=== PATIENT | female | born 1970 | race Caucasian/White ===

== ENCOUNTER 2023-07-25 06:56 | Day surgery (SDC) | payer BC ==
[~2023-07-25 06:56] MED LIST: ASTRINGYN 8 GM TP ONE; XYLOCAINE 1%/Epi 1:100000 MDV 20 ML ONE
[2023-07-25 07:24] LABS: HCG URINE TEST NEGATIVE (NEGATIVE)
[2023-07-25] MEDS ORDERED: CEFAZOLIN 2 GM-D5W BAG** 2 GM/50 ML ML IV ONE (07:25)
[2023-07-25] MEDS ORDERED: Lactated Ringers 1,000 ML IV ONE (07:25)
[2023-07-25] MEDS ORDERED: Lactated Ringers 1,000 ML IV SCH (07:30)
[2023-07-25] MEDS ORDERED: CEFAZOLIN 2 GM-D5W BAG** 2 GM/50 ML ML IV SCH (07:30)
[2023-07-25 07:52] VITALS: RESP 16
[2023-07-25] MEDS ORDERED: DIPRIVAN 200 MG/20 ML IV ONE (09:13)
[2023-07-25] MEDS ORDERED: SUBLIMAZE 100 MCG/2 ML ONE (09:13)
[2023-07-25] MEDS ORDERED: Versed 2 MG/2 ML Injection ONE (09:13)
[2023-07-25] MEDS ORDERED: PERCOCET TABLET 5/325MG PO ONE (11:14)
[2023-07-25] MEDS ORDERED: TORAdol 30 mg Injection IV ONE (11:15)
[2023-07-25] MEDS ORDERED: TORAdol 30 mg Injection ONE (11:19)
[2023-07-25] MEDS ORDERED: Zofran 4 MG/2 ML VIAL IV STA (11:22)
[2023-07-25] MEDS ORDERED: Zofran 4 MG/2 ML VIAL ONE (11:23)
[2023-07-25 12:31] VITALS: BP 125/52; PULSE 52; TEMP 97.9; O2SAT 96
--- NOTE | 2023-07-26 09:07 | OP ---
SURGERY DATE/TIME: 07/25/2023 0912 PREOPERATIVE DIAGNOSIS: Menorrhagia and severe cervical dysplasia. POSTOPERATIVE DIAGNOSIS: Menorrhagia and severe cervical dysplasia. PROCEDURE: Hysteroscopy D&C with NovaSure ablation with loop electrosurgical excision procedure (LEEP). SURGEON: Alex Betts D.O. INTERVENTIONIST: Arminda Perla, surgical technologist. ANESTHESIA: General. ESTIMATED BLOOD LOSS: Minimal. COMPLICATIONS: None. INDICATIONS: The risks, benefits, indications and alternatives of the procedure were reviewed with the patient prior to procedure. The patient understood the risk of infection, bleeding, bowel injury, bladder injury, uterine perforation and pelvic infection and thromboembolic disorder associated with the surgery and desires to have this surgery as a possible means to alleviate her current medical condition. DESCRIPTION OF PROCEDURE AND FINDINGS: At this point the patient is taken to the operating room, given general sedation, placed in the dorsal lithotomy position, prepped and draped in the usual sterile fashion. A weighted speculum is then placed in the patient's vagina and the anterior lip of the cervix is grasped with a single tooth tenaculum. Endocervical dilators were advanced through the endocervical canal as a means to dilate the cervix and a 5 mm hysteroscope is then placed through the endocervical region where visualization revealed her to have a normal endometrial lining with no gross abnormalities that was noted. From this point the hysteroscope is removed and a curette is then placed into the fundus of the uterus and curettage was performed in all quadrants of the uterus retrieving a moderate amount of tissue. Again, hemostasis is obtained. From this point the NovaSure instrument was then placed in through the endocervical region towards the fundal region and retracted approximately 1 cm with a length of 6.5 cm and a width of 2.7 cm where the instrument was engaged and the instrument was turned on for an ablative time of 59 seconds. After complete ablation, the NovaSure instrument was disengaged and removed from the uterine cavity without complication. Attention was turned to the cervical region where the cervix was then injected circumferentially with 1% lidocaine with epinephrine and approximately 10 cc was used. From this point the loop instrument was then taken from a right to left motion where the ectocervical tissue was excised where a 7 to 8 mm ectocervical tissue was excised without complication in a right to left motion. An additional 2 to 3 mm of endocervical tissue was excised in similar fashion. Hemostasis was further obtained by placing the loop waterside worker ball on the surface of the cervix coagulating the surface of the cervix that had been cut. From this point hemostasis was obtained and there was no bleeding that was noted after the procedure. From this point, all instruments were removed from the patient's vaginal region. The patient is then taken out of the dorsal lithotomy position, was taken out of the anesthesia and was then taken to the recovery room in stable condition. All instruments and laps were accounted for x2.
== END 2023-07-25 12:30 | disposition home or self-care (01) ==
LOC: SDC 06:56 → MERGE 12:12 → SDC 12:30
PROVIDERS: ATTEND Obstetrics & Gynecology
DX: N92.0 Excessive and frequent menstruation with regular cycle (principal); D06.9 Carcinoma in situ of cervix, unspecified; E11.9 Type 2 diabetes mellitus without complications
CPT/HCPCS: 81025; 82947; 96374; 96375; J0690; J1885; J2250; J2405; J2704; J3010; A9270-GY